=== PATIENT | male | born 1995 | race Caucasian/White ===

== ENCOUNTER 2018-11-11 11:36 | Emergency (ER) | payer OTHER ==
--- NOTE | 2018-11-11 12:27 | ED ---
Psychiatric Complaint - HPI Summary HPI Summary: A 23 y/o male presents to [facility] with a chief complaint of lack of concentration on 11/11/18. The patient denies SI/HI. He states that he has had ADHD since he was a child and has been taking medication. He reports that he has been getting through high school and one year of college but has not able to cope with his problem for a while. 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 He states that he just wants to do better and have a future. He claims that at [place] the patient he met a girl who is similar to him who he thinks doing well because she is properly medicated. He admits to occasional EtOH use but denies smoking or drug use. - History Of Current Complaint Chief Complaint: EDPsychosocial Time Seen by Provider: 11/11/18 11:38 Hx Obtained From: Patient Onset/Duration: Sudden Onset, Lasting Weeks, Still Present Timing: Constant Severity Initially: Mild Severity Currently: Mild Aggravating Factor(s): Nothing Alleviating Factor(s): Nothing Associated Signs And Symptoms: Positive: Negative - SI, HI Has Suicidal: Denies: Thoughts, With A Plan, Demonstrates Gesture Has Homicidal: Denies: Thoughts, With A Plan, Demonstrates Gesture - Allergies/Home Medications Allergies/Adverse Reactions: Allergies Allergy/AdvReac Type Severity Reaction Status Date / Time DUST Allergy Severe Sneezing Uncoded 10/24/14 13:43 PET DANDER Allergy Severe Sneezing Uncoded 10/24/14 13:43 Home Medications: Home Medications NK [No Home Medications Reported] 11/11/18 [History Confirmed 11/11/18] PMH/Surg Hx/FS Hx/Imm Hx Endocrine/Hematology History: Denies: Hx Diabetes Cardiovascular History: Denies: Hx Hypercholesterolemia, Hx Hypertension Respiratory History: Reports: Hx Asthma - CHILDHOOD TILL 15 Infectious Disease History: No Infectious Disease History: Denies: Traveled Outside the [place] in Last 30 Days - Family History Known Family History: Negative: Cardiac Disease, Hypertension, Diabetes - Social History Alcohol Use: Rare Substance Use Type: Reports: None Smoking Status (MU): Never Smoked Tobacco Review of Systems Negative: Fever Neurological: Other - Positive: trouble concentrating Positive: Other - negative: SI, HI All Other Systems Reviewed And Are Negative: Yes Physical Exam - Summary Physical Exam Summary: VITAL SIGNS: Reviewed. GENERAL: Patient is a well-developed and nourished MALE who is lying comfortable in the stretcher. Patient is not in any acute respiratory distress. HEAD AND FACE: No signs of trauma. No ecchymosis, hematomas or skull depressions. No sinus tenderness. EYES: PERRLA, EOMI x 2, No injected conjunctiva, no nystagmus. EARS: Hearing grossly intact. Ear canals and tympanic membranes are within normal limits. MOUTH: Oropharynx within normal limits. NECK: Supple, trachea is midline, no adenopathy, no JVD, no carotid bruit, no c- spine tenderness, neck with full ROM. CHEST: Symmetric, no tenderness at palpation LUNGS: Clear to auscultation bilaterally. No wheezing or crackles. CVS: Regular rate and rhythm, S1 and S2 present, no murmurs or gallops appreciated. ABDOMEN: Soft, non-tender. No signs of distention. No rebound no guarding, and no masses palpated. Bowel sounds are normal. EXTREMITIES: FROM in all major joints, no edema, no cyanosis or clubbing. NEURO: Alert and oriented x 3. No acute neurological deficits. Speech is normal and follows commands. SKIN: Dry and warm PSYCH: Depressed, quiet, and denies any suicidal thoughts or plan. No homicidal thoughts or plan. No signs of psychosis or pressure speech. No tangential speech. Triage Information Reviewed: Yes Vital Signs On Initial Exam: Initial Vitals Temp Pulse Resp BP Pulse Ox 99 F 96 18 150/75 97 11/11/18 11:43 11/11/18 11:43 11/11/18 11:43 11/11/18 11:43 11/11/18 11:43 Vital Signs Reviewed: Yes Diagnostics - Vital Signs Vital Signs Temp Pulse Resp BP Pulse Ox 11/11/18 11:43 99 F 96 18 150/75 97 - Laboratory Lab Statement: Any lab studies that have been ordered have been reviewed, and results considered in the medical decision making process. Re-Evaluation - Re-Evaluation First Eval Re-Evaluation Time: 12:10 Change: Unchanged Comment: cleared for MHE Course/Dx - Course Assessment/Plan: A 23 y/o male presents to [facility] with a chief complaint of lack of concentration on 11/11/18. The patient denies SI/HI. He states that he has had ADHD since he was a child and has been taking medication. He reports that he has been getting through high school and one year of college but has not able to cope with his problem for a while. 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 He states that he just wants to do better and have a future. He claims that at [place] the patient he met a girl who is similar to him who he thinks doing well because she is properly medicated. He admits to occasional EtOH use but denies smoking or drug use. Blood work w/o a significant abnormality. Lawrence is medically cleared. He is awaiting for a MHE. Patient is hemodynamically stable and A+O x 3. Dr. Coburn ( Psychiatry) saw and examined the patient and clear the patient and recommends to discharge the patient home with outpatient follow up. - Differential Dx/Clinical Impression Differential Diagnosis/HQI/PQRI: Positive: Anxiety Provider Diagnosis: ADHD - Physician Notifications Discussed Care Of Patient With: Sean Coburn Time Discussed With Above Provider: 15:35 Instructed by Provider To: Other - Per [facility], Dr. Coburn cleared the patient for discharge and will give him information on ADHD. Discharge - Sign-Out/Discharge Documenting (check all that apply): Patient Departure - DC - Discharge Plan Condition: Stable Disposition: HOME Patient Education Materials: ADHD in Adults (ED) Referrals: Family,Childrens [Other] [facility] [Outside] [facility] [Outside] - Billing Disposition and Condition Condition: STABLE Disposition: Home - Attestation Statements Document Initiated by Trayibe: Yes Documenting Scribe: Tristan Bonilla Provider For Whom Karan is Documenting (Include Credential): Ciaran Duarte MD Scribe Attestation: Tristan Valera scribed for Ciaran Duarte MD on 11/12/18 at 1031. Scribe Documentation Reviewed: Yes Provider Attestation: The documentation as recorded by the Tristan jeronimo accurately reflects the service I personally performed and the decisions made by me, Ciaran Duarte MD Status of Scribe Document: Viewed Attestations User Type: Provider with Scribe Provider Attestation: The documentation recorded by the scribe accurately reflects the service I personally performed and the decisions made by me.
[2018-11-11 15:57] VITALS: BP 120/80
== END 2018-11-11 15:56 | disposition home or self-care (01) ==
LOC: ED 11:36
DX: F90.9 Attention-deficit hyperactivity disorder, unspecified type (principal)
CPT/HCPCS: 99281